=== PATIENT | female | born 1995 | race Caucasian/White ===

== ENCOUNTER 2016-10-05 15:13 | Emergency (ER) | payer OTHER ==
[2016-10-05 15:28] VITALS: TEMP 98.8
[2016-10-05] MEDS ORDERED: NS 1,000 ML IV ONE (15:32)
--- NOTE | 2016-10-05 15:34 | UCPHY ---
H & P Patient Type: Established Chief Complaint Nursing Narrative: pt states was in restaurant that cooks with nuts and she began having a reaction, states she was red all over and chest and throat felt tight. pt took benadryl 75 mg user acceptance tester, is already on prednisone and felt like she didn't need her epipen. Time Seen by Provider: 10/05/16 15:25 HPI/ROS: CHIEF COMPLAINT: Allergic reaction HISTORY OF PRESENT ILLNESS: The patient is a 20-year-old female who comes to the Urgent Care complaining of an allergic reaction. She states that she was at a restaurant that cooks with nuts. She is allergic to several nuts including almonds and began to have an urticarial type rash to her chest and stomach. She also felt that her throat was starting to swell. She took 75 mg of her Benadryl. She also has an EpiPen and prednisone p.r.n. but did not take these. Her symptoms resolved prior to coming to the urgent care. She states that her boss wanted her to come "get checked out". REVIEW OF SYSTEMS: Constitutional: denies: chills, fever, recent illness, recent injury EENTM: denies: blurred vision, double vision, nose congestion Respiratory: denies: cough, shortness of breath Cardiac: denies: chest pain, irregular heart rate, lightheadedness, palpitations Gastrointestinal/Abdominal: denies: abdominal pain, diarrhea, nausea, vomiting, blood streaked stools Genitourinary: denies: dysuria, frequency, hematuria, pain Musculoskeletal: denies: joint pain, muscle pain Skin: See HPI Neurological: denies: headache, numbness, paresthesia, tingling, dizziness, weakness Hematologic/Lymphatic: denies: blood clots, easy bleeding, easy bruising Immunologic/allergic: denies: HIV/AIDS, transplant EXAM: GENERAL: Well-appearing, well-nourished and in no acute distress. HEAD: Atraumatic, normocephalic. EYES: Pupils equal round and reactive to light, extraocular movements intact, sclera anicteric, conjunctiva are normal. ENT: TMs normal, nares patent, oropharynx clear without exudates. Moist mucous membranes. NECK: Normal range of motion, supple without lymphadenopathy or JVD. LUNGS: Breath sounds clear to auscultation bilaterally and equal. No wheezes rales or rhonchi. HEART: Regular rate and rhythm without murmurs, rubs or gallops. ABDOMEN: Soft, nontender, normoactive bowel sounds. No guarding, no rebound. No masses appreciated. BACK: No CVA tenderness, no spinal tenderness, step-offs or deformities EXTREMITIES: Normal range of motion, no pitting or edema. No clubbing or cyanosis. NEUROLOGICAL: Cranial nerves II through XII grossly intact. Normal speech, normal gait. 5/5 strength, normal movement in all extremities, normal sensation PSYCH: Normal mood, normal affect. SKIN: Warm, dry, normal turgor, no visible rashes or lesions. Source: Patient Exam Limitations: No limitations - Personal History LMP (Females 10-55): Extended Cycle BCP/Inj - Medical/Surgical History Hx Asthma: Yes Hx Chronic Respiratory Disease: No Hx Diabetes: No Hx Cardiac Disease: No Hx Renal Disease: No Hx Cirrhosis: No Hx Alcoholism: No Hx HIV/AIDS: No Hx Splenectomy or Spleen Trauma: No Other PMH: asthma - Family History Significant Family History: Hypertension - Social History Smoking Status: Never smoked Alcohol Use: Sober Drug Use: None Constitutional: Initial Vital Signs Temperature (C) 37.1 C 10/05/16 15:15 Heart Rate 90 10/05/16 15:15 Respiratory Rate 18 10/05/16 15:15 Blood Pressure 130/70 H 10/05/16 15:15 O2 Sat (%) 97 10/05/16 15:15 O2 Delivery Mode Room Air Allergies/Adverse Reactions: No Known Allergies Allergy (Unverified 06/08/15 11:42) Home Medications: Medication Instructions Recorded Dulera 100 Mcg/5 Mcg Inhaler 06/08/15 Albuterol 10/05/16 EPIPEN 10/05/16 Prednisone 10/05/16 Medical Decision Making ED Course/Re-evaluation: 4:15 p.m. the patient is asymptomatic. She is feeling much better. We will continue to observe. 4:50 p.m. the patient is asymptomatic. She is eager to go. She declines further workup or testing at this time. We discussed continued care. She has been in contact with her clinical laboratory assistant. She declines prescriptions. Differential Diagnosis: Partial list of the Differential diagnosis considered include but were not limited to; allergic reaction, anaphylaxis and although unlikely based on the history and physical exam, I also considered infection, viral syndrome, Brand Dedrick's. I discussed these differential diagnoses and the plan with the patient as well as the usual and expected course. The patient understands that the diagnosis is provisional and that in medicine we are not always correct and that further workup is often warranted. Usual and customary warnings were given. All of the patient's questions were answered. The patient was instructed to return to the emergency department should the symptoms at all worsen or return, otherwise to followup with the physician as we discussed. - Data Points Medications Given: Discontinued Medications Sodium Chloride (Ns) 1,000 mls @ 0 mls/hr IV ONCE ONE PRN Reason: Wide Open Stop: 10/05/16 15:33 Last Admin: 10/05/16 15:30 Dose: 1,000 mls Departure - Departure Disposition: Home, Routine, Self-Care Clinical Impression: Allergic reaction Qualifiers: Encounter type: initial encounter Qualified Code(s): T78.40XA - Allergy, unspecified, initial encounter Condition: Fair Instructions: General Allergic Reaction (ED) Referrals: Toney Colbert MD [Medical Doctor] - As per Instructions - PQRS PQRS Measurement: Not applicable
[2016-10-05 17:22] VITALS: BP 112/62; PULSE 74; RESP 16; O2SAT 96
== END 2016-10-05 17:00 | disposition home or self-care (01) ==
LOC: CED 15:13
DX: T78.1XXA Other adverse food reactions, not elsewhere classified, initial encounter (principal)
CPT/HCPCS: 96360-PO; 99214-PO; G0463-PO

== ENCOUNTER 2016-10-30 10:23 | Emergency (ER) | payer OTHER ==
[2016-10-30] MEDS ORDERED: ONDANSETRON 4 MG/2 ML VIAL ONE (11:06)
[2016-10-30] MEDS ORDERED: NS 1,000 ML IV ONE (11:17)
[2016-10-30] MEDS ORDERED: ONDANSETRON 4 MG/2 ML VIAL IVP ONE (11:17)
--- NOTE | 2016-10-30 12:49 | UCPHY ---
H & P Patient Type: Established Chief Complaint Nursing Narrative: pt reports fever, nausea, vomiting, [id number], fatigue since yesterday. pt also reports feeling dizzy and off balance. Time Seen by Provider: 10/30/16 11:48 HPI/ROS: CHIEF COMPLAINT: Vomiting and diarrhea History by patient HISTORY OF PRESENT ILLNESS: 20-year-old otherwise healthy girl presents complaining of 2 days of copious vomiting and diarrhea. She describes the diarrhea as watery and nonbloody. She has had a fever to 101 at home. She has a friend with similar symptoms and both of them became ill within 24 hours of eating at a [employer] restaurant. She has not been able to keep down any food or fluid at home because of the vomiting. She tried taking and ibuprofen this morning but vomited it up.. She has had associated crampy abdominal pain. She has been on no recent antibiotics had no recent hospitalizations. REVIEW OF SYSTEMS: As in HPI, and all other systems reviewed and are negative Source: Patient, Family - Personal History Current Tetanus Diphtheria and Acellular Pertussis (TDAP): Yes - Medical/Surgical History Hx Asthma: Yes Hx Chronic Respiratory Disease: No Hx Diabetes: No Hx Cardiac Disease: No Hx Renal Disease: No Hx Cirrhosis: No Hx Alcoholism: No Hx HIV/AIDS: No Hx Splenectomy or Spleen Trauma: No Other PMH: asthma, migraines - Family History Significant Family History: No pertinent family hx - Social History Smoking Status: Never smoked - Physical Exam Exam: General Appearance: Alert, nontoxic-appearing. Eyes: Pupils equal and round no pallor or injection. ENT, Mouth: Mucous membranes moist. Respiratory: Normal, effort, There are no retractions, lungs are clear to auscultation. Cardiovascular: Regular rate and rhythm. Gastrointestinal: Abdomen is soft mild left-sided tenderness, no masses, bowel sounds normal. Neurological: Awake, alert and oriented x 3, no pronator drift, normal gait, no pronator drift Skin: Warm and dry, no rashes. Musculoskeletal: Neck is supple nontender. Extremities are symmetrical, full range of motion. Psychiatric: Patient has normal affect, there is no agitation. Constitutional: Initial Vital Signs Temperature (C) 37.1 C 10/30/16 10:39 Heart Rate 85 10/30/16 10:39 Respiratory Rate 16 10/30/16 10:39 Blood Pressure 128/65 H 10/30/16 10:39 O2 Sat (%) 98 10/30/16 10:39 O2 Delivery Mode Room Air Allergies/Adverse Reactions: No Known Allergies Allergy (Verified 10/30/16 10:42) Home Medications: Medication Instructions Recorded Dulera 100 Mcg/5 Mcg Inhaler 06/08/15 Ondansetron Odt [Zofran Odt 4 mg 4 mg PO Q4 PRN #12 tab 10/30/16 (*)] Ranitidine HCl 10/30/16 Ventolin Hfa 10/30/16 Medical Decision Making ED Course/Re-evaluation: 20-year-old woman presents with fever, nausea and vomiting all consistent with infectious gastroenteritis. She has no risk factors for C difficile. Patient initially appeared dehydrated. Patient was given IV fluids and Zofran after which her heart rate improved and she was feeling better and was able tolerate oral fluids. She is discharged home with a prescription for Zofran and we discussed home care and return precautions. - Data Points Medications Given: Discontinued Medications Sodium Chloride (Ns) 1,000 mls @ 0 mls/hr IV ONCE ONE PRN Reason: Wide Open Stop: 10/30/16 11:18 Last Admin: 10/30/16 11:18 Dose: 1,000 mls Ondansetron HCl (Zofran) 4 mg IVP EDNOW ONE Stop: 10/30/16 11:18 Last Admin: 10/30/16 11:18 Dose: 4 mg Departure - Departure Disposition: Home, Routine, Self-Care Clinical Impression: Diarrhea of presumed infectious origin Condition: Fair Instructions: Gastroenteritis (ED) Additional Instructions: You were seen by Dr. Venessa De La O today. Return for any worsening or new concerns. Take Zofran as needed for nausea and vomiting. You may take loperamide for the diarrhea. If diarrhea fever persist longer than 2-3 more days please return to have your diarrhea checked for specific infectious causes like C difficile. Referrals: Sharron Nunez MD [Primary Care Provider] - As per Instructions Stand Alone Forms: Work Excuse Prescriptions: Ondansetron Odt [Zofran Odt 4 mg (*)] 4 mg PO Q4 PRN #12 tab PRN Reason: Nausea/Vomiting, Can'T Take Po - PQRS PQRS Measurement: NA
[2016-10-30 13:07] VITALS: BP 117/63; PULSE 68; RESP 16; TEMP 98.4; O2SAT 98
== END 2016-10-30 13:11 | disposition home or self-care (01) ==
LOC: CED 10:23
DX: R19.7 Diarrhea, unspecified (principal); R11.10 Vomiting, unspecified
CPT/HCPCS: 96361-PO; 96374-PO; 99214-PO; G0463-PO; J2405

== ENCOUNTER 2017-09-02 11:16 | Emergency (ER) | payer OTHER ==
[2017-09-02 11:23] VITALS: RESP 18; TEMP 98.1
[2017-09-02] MEDS ORDERED: ACETAMINOPHEN 500 MG TAB PO ONE (13:19)
[2017-09-02] MEDS ORDERED: IBUPROFEN 600 MG TAB PO ONE (13:19)
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
[2017-09-02 14:34] VITALS: BP 115/63; PULSE 62; O2SAT 99
== END 2017-09-02 14:33 | disposition home or self-care (01) ==
DX: S32.009A Unspecified fracture of unspecified lumbar vertebra, initial encounter for closed fracture (principal); M54.16 Radiculopathy, lumbar region; J45.909 Unspecified asthma, uncomplicated; V47.9XXA Unspecified car occupant injured in collision with fixed or stationary object in traffic accident, initial encounter; Y92.410 Unspecified street and highway as the place of occurrence of the external cause